=== PATIENT | female | born 1985 | race Caucasian/White ===

== ENCOUNTER 2022-05-28 10:44 | Emergency (ER) | payer OTHER ==
[2022-05-28] MEDS ORDERED: CYCLOBENZAPRINE10 MG PO (13:07)
[2022-05-28] MEDS ORDERED: IBUPROFEN800 MG PO (13:07)
== END 2022-05-28 13:21 | disposition home or self-care (01) ==
LOC: FER 10:44
DX: S16.1XXA Strain of muscle, fascia and tendon at neck level, initial encounter (principal); S29.012A Strain of muscle and tendon of back wall of thorax, initial encounter; I10 Essential (primary) hypertension; Z28.310 Unvaccinated for COVID-19; V49.9XXA Car occupant (driver) (passenger) injured in unspecified traffic accident, initial encounter
CPT/HCPCS: 99283; J1885